=== PATIENT | female | born 1935 | race Caucasian/White ===

== ENCOUNTER 2017-03-18 12:23 | Emergency (ER) | payer OTHER ==
[~2017-03-18] VITALS: Ht 172.7 cm; Wt 89.4 kg
--- NOTE | 2017-03-18 13:11 | ED MVC/FALL/TRAUMA COMPLAINT ---
History of Present Illness General Chief Complaint: Fall Stated Complaint: PT FELL AND HURT HER LEFTSHOULDER AND HAND, Source: patient Exam Limitations: no limitations Vital Signs & Intake/Output Vital Signs & Intake/Output Vital Signs Date Time Temp Pulse Resp B/P B/P Pulse O2 O2 Flow FiO2 Mean Ox Delivery Rate 03/18 1608 80 18 130/82 98 Room Air 03/18 1415 98.7 75 18 124/83 96 03/18 1232 99.1 105 20 175/102 98 Room Air Allergies Coded Allergies: Penicillins (Mild, RASH 03/18/17) aspirin (Mild, STOMACH PAIN 03/18/17) Reconcile Medications Diltiazem HCl (Diltiazem ER) 180 MG TAB.ER.24H 1 TAB PO DAILY HEART (Reported ) Oxycodone HCl/Acetaminophen (Percocet 5-325 MG Tablet) 5 MG-325 MG TABLET 1 TAB PO BID PRN PAIN Rivaroxaban (Xarelto) 20 MG TABLET 1 TAB PO DAILY BLOOD THINNER (Reported) with food Triage Note: PT TO ED WITH DAUGHTER C/O LEFT ARM, LEFT HAND, LEFT KNEE AND LEFT SHOULDER PAIN. S/P TRIP AND FALL ON A HOSE YESTERDAY. HAS BEEN TAKING TYLENOL WITH NO RELIEF. DECLINCING MEDS IN TRIAGE. Triage Nurses Notes Reviewed? yes Onset: Abrupt Duration: constant Timing: recent history Severity: severe Severity Numbers: 7 Injuries/Fall Location: upper extremity, lower extremity Method of Injury: direct blow Loss of Consciousness: no loss of consciousness HPI: Patient is an 81-year-old female who presents emergency and that yesterday patient was ambulating and tripped on a hose where she fell to the left lateral aspect of her upper extremity and lower extremity resulting in pain localized to the left upper extremity and left knee. Patient denies any preceding episode of lightheaded sensation or dizziness. Denies any head strike neck pain or back pain. States that left upper extremity movements make worse. Patient can ambulate. Patient did not take any medications prior to arrival. (JOHN SAUCEDA) Past History Travel History Traveled to [place] past 21 day No Medical History Any Pertinent Medical History? see below for history Cardiovascular: hypertension Surgical History Surgical History: non-contributory Psychosocial History What is your primary language Eritrean Tobacco Use: Never used ETOH Use: denies use Illicit Drug Use: denies illicit drug use Family History Hx Contributory? No (JOHN SAUCEDA) Review of Systems Review of Systems Constitutional: Reports: no symptoms. Eyes: Reports: no symptoms. Ears, Nose, Throat, Mouth: Reports: no symptoms. Respiratory: Reports: no symptoms. Cardiovascular: Reports: no symptoms. Gastrointestinal/Abdominal: Reports: no symptoms. Genitourinary: Reports: no symptoms. Musculoskeletal: Reports: see HPI, joint pain. Skin: Reports: no symptoms. Neurological/Psychological: Reports: no symptoms. All Other Systems: Reviewed and Negative (JOHN SAUCEDA) Physical Exam Physical Exam General Appearance: no apparent distress, alert, comfortable Comments: Well-developed well-nourished person in no acute distress HEENT: Normal EENT exam, Neck: Supple, no lymphadenopathy, normal range of motion without pain or tenderness No central spinous tenderness Back: Nontender, no CVA tenderness. No central spinous tenderness Cardiovascular: Regular rate and rhythms no murmurs rubs or gallops, normal JVP Respiratory: Chest nontender. No respiratory distress.breath sounds clear to auscultation bilaterally Abdomen: Soft, nontender nondistended, no appreciable organomegaly. Normal bowel sounds. No ascites Extremity: Left shoulder normal inspection decreased active range of motion noted at 30 of flexion abduction generalized point tenderness noted Left elbow normal inspection full active range of motion Left wrist- point tenderness mild swelling decreased active range of motion noted Left upper extremity dermatomes intact radial pulse +2 intact Left hip nontender full active range of motion Left knee generalized swelling noted generalized point tenderness noted full active range of motion Neuro: Alert oriented x3, motor sensory normal, cranial nerves II through XII grossly intact. Skin: No appreciable rash on exposed skin, skin is warm and dry. Psych: Mood and affect is normal, memory and judgment is normal. Core Measures ACS in differential dx? No Severe Sepsis Present: No Septic Shock Present: No (JOHN SAUCEDA) Progress Differential Diagnosis: C/T/L spine injury, ext injury, ICH, pelvis injury, pnemothorax, spinal cord injury Plan of Care: Orders Procedure Date/time Status Durable Medical Equipment 03/18 1550 Active Patient had no osseous injuries noted on x-ray findings TO where patient was symptomatically tender in POINT TENDER. A shoulder immobilizer was placed to left upper extremity which pre-and post-neurovascular was intact. Patient had normal steady gait on discharge. Patient was strongly advised to follow-up with orthopedic doctor DISCUSSED PLAN WITH DR NORTH. (JOHN SAUCEDA) Diagnostic Imaging: Viewed by Me: Radiology Read. Radiology Impression: no fracture Comments: PATIENT: JESSE YOU PRESENT AGE: 81 PATIENT ACCOUNT NO: [id number] : 34 LOCATION: [facility], [place] ORDERING PHYSICIAN: JOHN EARLY SERVICE DATE: 03/18/17 EXAM TYPE: RAD - XRY-ELBOW 3 OR MORE VIEWS, L; XRY-KNEE COMPLETE LEFT; XRY- SHOULDER COMPLETE-LEFT; XRY-WRIST COMPLETE-LEFT Indication: Trauma EXAMINATION: Multiple films. Left knee, left elbow, left wrist, left shoulder Left knee Degenerative changes. No acute fracture or dislocation. Left elbow: 4 views. Degenerative changes. No effusion. No acute fracture or dislocation. Left wrist 5 views. Degenerative changes. No acute fracture or dislocation. Left shoulder 3 views. Degenerative changes. No acute fracture or dislocation. IMPRESSION: Multiple exams. No fracture or dislocation left shoulder, left elbow, left wrist, left knee (JOHN SAUCEDA) Departure Departure Disposition: HOME OR SELF CARE Condition: Stable Clinical Impression Primary Impression: Left shoulder pain Secondary Impressions: Left arm pain, Left knee pain Referrals: RONALD CHRISTY,MARGO PEREZ MD,HARRISON (PCP/Family) Additional Instructions: As discussed begin icing the area directly 20 minutes every 2 hours. Begin over -the-counter Naprosyn as directed for pain and inflammation. Begin the prescription of Percocet for breakthrough pain relief. PRESCRIPTION IS waiting at [facility] pharmacy. Begin using the shoulder immobilizer until you can move her arm without pain. If symptoms worsen return to emergency room. If no better in one week follow-up with orthopedic Departure Forms: Customer Survey General Discharge Information Prescriptions: Current Visit Scripts Oxycodone HCl/Acetaminophen (Percocet 5-325 MG Tablet) 1 TAB PO BID PRN PAIN #10 TAB (JOHN SAUCEDA) PA/TRANSCRIPTION TYPIST Co-Sign Statement Statement: ED Attending supervision documentation- [X] I saw and evaluated the patient. I have also reviewed all the pertinent lab results and diagnostic results. I agree with the findings and the plan of care as documented in the PA's/TRANSCRIPTION TYPIST's documentation. [X] I have reviewed the ED Record and agree with the PA's/TRANSCRIPTION TYPIST's documentation. [] Additions or exceptions (if any) to the PAs/TRANSCRIPTION TYPIST's note and plan are summarized below: [] (MARY ANNE CHRISTY,LISETTE)
[2017-03-18] MEDS ORDERED: DILTIAZEM ER180 M2 PO (14:40)
[2017-03-18] MEDS ORDERED: XARELTO20 M2 PO (14:40)
--- NOTE | 2017-03-18 14:47 | RADIOLOGY REPORT ---
Indication: Trauma EXAMINATION: Multiple films. Left knee, left elbow, left wrist, left shoulder Left knee Degenerative changes. No acute fracture or dislocation. Left elbow: 4 views. Degenerative changes. No effusion. No acute fracture or dislocation. Left wrist 5 views. Degenerative changes. No acute fracture or dislocation. Left shoulder 3 views. Degenerative changes. No acute fracture or dislocation. IMPRESSION: Multiple exams. No fracture or dislocation left shoulder, left elbow, left wrist, left knee
[2017-03-18] MEDS ORDERED: PERCOCET 5-3251 EACH PO (15:45)
[2017-03-18 16:08] VITALS: BP 130/82
== END 2017-03-18 16:08 ==
LOC: ERH 12:23
DX: M25.512 Pain in left shoulder (principal); M79.602 Pain in left arm; M25.562 Pain in left knee
CPT/HCPCS: 73030-LT; 73080-LT; 73110-LT; 73562-LT; 96372

== ENCOUNTER 2017-06-03 10:28 | Emergency (ER) | payer OTHER ==
[~2017-06-03] VITALS: Ht 172.7 cm; Wt 133.8 kg
[~2017-06-03 10:28] MED LIST: DILTIAZEM ER180 M2 PO; PERCOCET 5-3251 EACH PO; XARELTO20 M2 PO
--- NOTE | 2017-06-03 10:56 | ED SKIN/ALLERGY COMPLAINT ---
History of Present Illness General Chief Complaint: Allergy Symptoms Stated Complaint: ALLERGIC REACTION? SWOLLEN LIPS/HIVES ON ARMS Source: patient, old records, EMS Exam Limitations: no limitations Vital Signs & Intake/Output Vital Signs & Intake/Output Vital Signs Date Time Temp Pulse Resp B/P B/P Pulse O2 O2 Flow FiO2 Mean Ox Delivery Rate 06/03 1436 97.8 81 18 158/67 95 Room Air 06/03 1229 97.8 67 19 160/80 98 Room Air 06/03 1038 99 Room Air 06/03 1032 97.0 98 20 152/95 98 Room Air Allergies Coded Allergies: Penicillins (Mild, RASH 03/18/17) aspirin (Mild, STOMACH PAIN 03/18/17) Reconcile Medications Diltiazem HCl (Diltiazem ER) 180 MG TAB.ER.24H 1 TAB PO QPM HEART (Reported) Diphenhydramine HCl (Benadryl) 25 MG CAPSULE 1-2 CAP PO Q6P allergic rx Famotidine (Pepcid) 20 MG TABLET 1 TAB PO BID allergic rx Loratadine 10 MG TABLET 1 TAB PO DAILY PRN ALLERGIES (Reported) Prednisone 20 MG TABLET 1 TAB PO BID allergic reaction Rivaroxaban (Xarelto) 20 MG TABLET 1 TAB PO DAILY BLOOD THINNER (Reported) with food Triage Note: PT TO ED C/O ? ALLERGIC REACTION X 3 DAYS. PT HAS BEEN TAKING BENADRYL, CLARITIN, CREAMS WITH NO RELIEF. RA SATS 98%. NO RESP DISTRESS NOTED. DENIES NEW FOOD, SOAP, DETERGENT, LOTION. Triage Nurses Notes Reviewed? yes Onset: 3 days Duration: day(s):, continues in ED, getting worse Timing: recent history Severity: moderate, severe Location: face, torso, extremities Possible Factors: exposure to allergen, medications No Modifying Factors: none Associated Symptoms: flushing, rash LMP (ages 10-50): post menopausal : No Patient currently breastfeeds: No HPI: 3 days prior to admission after cutting the grass patient complains of itchy rash on neck torso extremities. 2 days prior to admission she came complains of itchy facial rash with lip swelling that is worsening. She was prescribed loratadine. She denies fever chills nausea vomiting diarrhea abdominal pain chest pain shortness breath headache dysuria bleeding new soap shampoo detergent over-the- counter medications. Past History Travel History Traveled to [place] past 21 day No Medical History Any Pertinent Medical History? see below for history Cardiovascular: hypertension Surgical History Surgical History: non-contributory Psychosocial History What is your primary language Tristanian Tobacco Use: Never used ETOH Use: denies use Illicit Drug Use: denies illicit drug use Family History Hx Contributory? No Review of Systems Review of Systems Constitutional: Reports: no symptoms. EENTM: Reports: no symptoms. Respiratory: Reports: no symptoms. Cardiovascular: Reports: no symptoms. GI: Reports: no symptoms. Genitourinary: Reports: no symptoms. Musculoskeletal: Reports: no symptoms. Skin: Reports: see HPI, rash. Neurological/Psychological: Reports: no symptoms. Hematologic/Endocrine: Reports: no symptoms. Immunologic/Allergic: Reports: no symptoms. All Other Systems: Reviewed and Negative Physical Exam Physical Exam General Appearance: well developed/nourished, alert, awake, anxious, moderate distress Head: atraumatic, swelling Eyes: Bilateral: normal appearance, PERRL, EOMI. Ears, Nose, Throat: normal pharynx, normal ENT inspection, hearing grossly normal, angioedema of lips Neck: normal inspection, supple, full range of motion, no midline tenderness Respiratory: normal breath sounds, chest non-tender, no respiratory distress, quiet respiration, lungs clear Cardiovascular: regular rate/rhythm, normal peripheral pulses, norml femoral pulses equa Peripheral Pulses: 4+ carotid (R), 4+ carotid (L) Gastrointestinal: normal bowel sounds, soft, non-tender, no organomegaly Back: normal inspection, normal range of motion, no vertebral tenderness Extremities: normal inspection, normal capillary refill, normal range of motion, no edema Neurologic/Psych: awake, alert, oriented x 3, normal mood/affect Reflexes: 2+: bicep (R), bicep (L). Skin: intact, normal color, warm/dry Skin Problem Location: face, upper extremities, torso Skin Problem Character: patchy, swelling, urticarial Lymphatic: no anterior cervical beau Progress Differential Diagnosis: allergic reaction, angioedema, contact dermatitis, urticaria Plan of Care: solumedrol benadryl pepcid Departure Departure Time of Disposition: 1351 Disposition: HOME OR SELF CARE Condition: Stable Clinical Impression Primary Impression: [id number] Qualifiers: Encounter type: initial encounter Qualified Code: T78.3XXA - Angioneurotic edema, initial encounter Secondary Impressions: Medication reaction Qualifiers: Encounter type: initial encounter Qualified Code: T88.7XXA - Unspecified adverse effect of drug or medicament, initial encounter Referrals: HARRISON PEREZ MD (PCP/Family) Additional Instructions: Call your doctor for medication changes, stop diltiazem and xarelto. Departure Forms: Customer Survey General Discharge Information Prescriptions: Current Visit Scripts Prednisone 1 TAB PO BID #10 TAB Famotidine (Pepcid) 1 TAB PO BID #10 TAB Diphenhydramine HCl (Benadryl) 1-2 CAP PO Q6P #30 CAP
[2017-06-03] MEDS ORDERED: LORATADINE10 M1 PO (11:09)
[2017-06-03] MEDS ORDERED: PREDNISONE20 M1 PO (13:54)
[2017-06-03] MEDS ORDERED: PEPCID20 M1 PO (13:54)
[2017-06-03] MEDS ORDERED: BENADRYL25 MG PO (13:54)
[2017-06-03 14:36] VITALS: BP 158/67
== END 2017-06-03 14:54 ==
LOC: ERH 10:28
DX: T50.901A Poisoning by unspecified drugs, medicaments and biological substances, accidental (unintentional), initial encounter (principal); T78.3XXA Angioneurotic edema, initial encounter
CPT/HCPCS: 96374; 96375; 96376; J1200; J2930